=== PATIENT | female | born 1970 ===

== ENCOUNTER 2016-08-17 17:30 | Emergency (ER) | payer OTHER ==
[2016-08-17 17:31] VITALS: BMI 18.1
[2016-08-17 18:05] VITALS: RESP 18; TEMP 97.7; O2SAT 99
[2016-08-17 19:00] LABS: RBC URINE 1 /hpf (0-3); URINE BACTERIA OCC (<OCC); URINE BILIRUBIN NEGATIVE (NEGATIVE); URINE BLOOD NEGATIVE (NEGATIVE); URINE CALCIUM OXALATE CRYSTALS FEW /hpf (<OCC); URINE COLOR Yellow (YELLOW); URINE GLUCOSE (UA) NORMAL (Normal); URINE KETONE NEGATIVE (NEGATIVE); URINE LEUKOCYTE ESTERASE NEG Leu/uL (Negative); URINE PROTEIN NEGATIVE (NEGATIVE); URINE UROBILINOGEN NORMAL mg/dL (0.2-1.0); WBC URINE < 1 /hpf (0-5)
--- NOTE | 2016-08-17 20:34 | C.PDOC ---
Time Seen by Provider: 08/17/16 18:49 Chief Complaint (Nursing): Abdominal Pain History Per: Patient Onset/Duration Of Symptoms: Days (1) Current Symptoms Are (Timing): Still Present Context: Other ( is sick contact) Severity: Moderate Location Of Pain/Discomfort: Epigastric Radiation Of Pain To:: None Quality Of Discomfort: Unable To Describe, "Pain" Associated Symptoms: Nausea Exacerbating Factors: Food Alleviating Factors: None Last Bowel Movement: Today Recent travel outside of the [place] States: No Additional History Per: Prior Records Past Medical History Reviewed: Historical Data, Nursing Documentation, Vital Signs Vital Signs: Last Vital Signs Temp 97.7 F 08/17/16 17:58 Pulse 64 08/17/16 17:58 Resp 18 08/17/16 17:58 BP 117/85 08/17/16 17:58 Pulse Ox 99 08/17/16 17:58 - Medical History PMH: Asthma, Back Problems, Gall Bladder Disease (gallstone), Migraine Family History: States: Unknown Family Hx - Social History Hx Tobacco Use: No 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 Constitutional: Negative for: Fever, Weakness Cardiovascular: Negative for: Chest Pain Respiratory: Negative for: Shortness of Breath Gastrointestinal: Positive for: Nausea, Abdominal Pain. Negative for: Vomiting , Diarrhea, Constipation, Melena, Hematochezia, Hematemesis Genitourinary: Negative for: Dysuria Musculoskeletal: Negative for: Neck Pain, Back Pain Skin: Negative for: Rash Neurological: Negative for: Weakness, Numbness, Seizures, Altered Mental Status Physical Exam - Physical Exam Appears: Non-toxic, No Acute Distress Skin: Normal Color, Warm, Dry, No Rash Head: Atraumatic, Normacephalic Eye(s): bilateral: Normal Inspection, PERRL, EOMI Oral Mucosa: Moist Neck: Normal ROM, Supple Cardiovascular: Rhythm Regular Respiratory: Normal Breath Sounds, No Accessory Muscle Use Gastrointestinal/Abdominal: Soft, No Tenderness Back: No CVA Tenderness Extremity: Normal ROM Neurological/Psych: Oriented x3, Normal Motor, Normal Sensation ED Course And Treatment - Laboratory Results Urine POC: Negative O2 Sat by Pulse Oximetry: 99 Pulse Ox Interpretation: Normal Progress - Interventions Interventions:: Observation - Medications Administered Oral: Antiemetic, H-2 ventura - Data Reviewed Data Reviewed: Lab, Old records - Patient Status Patient status: Mostly improved - Continuity of Care Discussed patient case with:: Patient, Family-HIPPA compliant, ED Nurse - Patient Plan Patient Plan: Discharge, F/U with PCP, Continue present meds Disposition Counseled Patient/Family Regarding: Studies Performed, Diagnosis, Need For Followup, Rx Given - Disposition Referrals: [facility] [Outside] Disposition: HOME/ ROUTINE Disposition Time: 20:33 Condition: IMPROVED Additional Instructions: Drink plenty of fluids. Follow up with your doctor or in the clinic. Return to the ER if you develop fever, bleeding, not tolerating fluids, worsening of symptoms or if you have any other concerns. Prescriptions: Famotidine [Pepcid] 20 mg PO BID #30 tab Metoclopramide [Reglan] 1 tab PO TID PRN #15 tab PRN Reason: Nausea/Vomiting Instructions: Gastritis (ED) - Clinical Impression Clinical Impression: Abdominal pain, Nausea
[2016-08-17 20:41] VITALS: BP 121/82; PULSE 68
== END 2016-08-17 20:43 | disposition home or self-care (01) ==
LOC: C.ER 17:30
DX: R10.9 Unspecified abdominal pain (principal); R11.0 Nausea

== ENCOUNTER 2017-01-01 08:32 | Emergency (ER) | payer OTHER ==
[2017-01-01 08:32] VITALS: BMI 18.1
[2017-01-01] MEDS ORDERED: Albuterol-Ipratrop 3 mg / 0.5 (3 ml) UD ONE ×2 (08:59→09:26)
--- NOTE | 2017-01-01 09:06 | C.PDOC ---
History Of Present Illness 46 year old female, whose PMHx includes asthma, presents to the ED for evaluation of asthma exacerbation which began around 4 days ago. Patient denies fever, chills, chest pain, cough, vomiting, previous history of intubations or asthma-related hospitalizations at this time. Time Seen by Provider: 01/01/17 08:43 Chief Complaint (Nursing): Shortness Of Breath History Per: Patient History/Exam Limitations: no limitations Onset/Duration Of Symptoms: Days (4) Current Symptoms Are (Timing): Still Present Quality: denies: "Pain" Current Respiratory Medications: See Home Med List Associated Symptoms: denies: Fever, Chills, Chest Pain, Bloody Cough, Productive Cough Additional History Per: Patient Past Medical History Reviewed: Historical Data, Nursing Documentation, Vital Signs Vital Signs: Last Vital Signs Temp 98.9 F 01/01/17 10:31 Pulse 79 01/01/17 10:31 Resp 18 01/01/17 10:31 BP 123/73 01/01/17 10:31 Pulse Ox 100 01/01/17 11:03 - Medical History PMH: Asthma, Back Problems, Gall Bladder Disease (gallstone), Migraine Surgical History: No Surg Hx Family History: States: Unknown Family Hx - Social History Hx Tobacco Use: No 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 Negative for: Cough Gastrointestinal: Negative for: Vomiting Physical Exam - Physical Exam Appears: Non-toxic, No Acute Distress Skin: Normal Color, Warm, Dry Head: Atraumatic, Normacephalic Eye(s): bilateral: Normal Inspection Ear(s): Bilateral: Normal Nose: Normal Oral Mucosa: Moist Throat: Normal, No Erythema, No Exudate Neck: Supple Lymphatic: Normal Exam Chest: Symmetrical, No Deformity, No Tenderness Cardiovascular: Rhythm Regular, No Murmur Respiratory: No Rales, No Rhonchi, Wheezing (minimal, expiratory ), Other (no retructions) Extremity: Normal ROM, Capillary Refill (less than 2 seconds ) Neurological/Psych: Oriented x3, Normal Speech, Normal Cognition Gait: Steady ED Course And Treatment O2 Sat by Pulse Oximetry: 100 (on RA) Pulse Ox Interpretation: Normal Progress Note: Prednisone 60mg PO and four treatments of Duoneb INH administered. On reassessment, patient is resting comfortably and is showing no signs of respiratory distress. Patient reports her symptoms have resolved and states she would like to be discharged. Patient is advised to follow up with her PMD within 1-2 days for further evaluation and/or return to the ED if symptoms return or worsen. Disposition Counseled Patient/Family Regarding: Studies Performed, Diagnosis, Need For Followup, Rx Given - Disposition Referrals: [facility] [Outside] [facility] [Outside] Disposition: HOME/ ROUTINE Disposition Time: 10:24 Condition: STABLE Additional Instructions: FOLLOW UP WITH PMD OR CLINIC IN 1-2 DAYS FOR RE-EVALUATION. IF SYMPTOMS GET WORSE OR ANY NEW CONCERNING SYMPTOMS DEVELOP RETURN TO ED. 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 - Scribe Statement The provider has reviewed the documentation as recorded by the Scribe (Michelle Bright) All medical record entries made by the Scribe were at my direction and personally dictated by me. I have reviewed the chart and agree that the record accurately reflects my personal performance of the history, physical exam, medical decision making, and the department course for this patient. I have also personally directed, reviewed, and agree with the discharge instructions and disposition.
[2017-01-01] MEDS: Albuterol-Ipratrop 3 mg / 0.5 (3 ml) UD IH SCH ×3 (09:08→09:46)
[2017-01-01 09:18] VITALS: RESP 18
[2017-01-01 10:32] VITALS: BP 123/73; PULSE 79; TEMP 98.9
[2017-01-01 10:57] VITALS: O2SAT 100
== END 2017-01-01 10:31 | disposition home or self-care (01) ==
LOC: C.ER 08:32
DX: J45.909 Unspecified asthma, uncomplicated (principal)

== ENCOUNTER 2017-01-20 10:52 | Emergency (ER) | payer MEDICAID ==
[2017-01-20 10:52] VITALS: BMI 21.4
[2017-01-20 11:12] VITALS: TEMP 98.1
[2017-01-20] MEDS ORDERED: Naproxen 550 mg Tab PO STA (11:41)
[2017-01-20] MEDS ORDERED: Naproxen 550 mg Tab PO ONE (11:53)
[2017-01-20 12:47] LABS: URINE BILIRUBIN NEGATIVE (NEGATIVE); URINE BLOOD 2+ (NEGATIVE); URINE COLOR Yellow (YELLOW); URINE GLUCOSE (UA) NORMAL (Normal); URINE KETONE NEGATIVE (NEGATIVE); URINE LEUKOCYTE ESTERASE NEG Leu/uL (Negative); URINE PROTEIN NEGATIVE (NEGATIVE); URINE UROBILINOGEN NORMAL mg/dL (0.2-1.0)
[2017-01-20 12:58] LABS: RBC URINE 3 /hpf (0-3)
[2017-01-20 13:14] VITALS: BP 96/62; PULSE 63; RESP 16; O2SAT 99
--- NOTE | 2017-01-20 13:34 | C.PDOC ---
History Of Present Illness 46 year old female, whose PMHx includes migraines, presents to the ED for evaluation of headache and generalized body aches which began at around 0300 today. Patient states symptoms are similar to her typical migraines, but she does not have any Excedrin right now. Patient also complains of dysuria and increased urinary frequency for 1 month. Patient denies fever, chills, nausea, vomiting, abdominal pain, flank pain, vaginal bleeding/discharge. Time Seen by Provider: 01/20/17 11:00 Chief Complaint (Nursing): Headache History Per: Patient History/Exam Limitations: no limitations Onset/Duration Of Symptoms: Hrs Current Symptoms Are (Timing): Still Present Quality: Aching Preceeding Symptoms: Known Migraine Symptoms Additional History Per: Patient Past Medical History Reviewed: Historical Data, Nursing Documentation, Vital Signs Vital Signs: Last Vital Signs Temp 98.1 F 01/20/17 11:00 Pulse 63 01/20/17 13:13 Resp 16 01/20/17 13:13 BP 96/62 L 01/20/17 13:13 Pulse Ox 99 01/20/17 16:57 - Medical History PMH: Asthma, Back Problems, Depression, Gall Bladder Disease (gallstone), Migraine Surgical History: No Surg Hx Family History: States: Unknown Family Hx - Social History Hx Tobacco Use: No Hx Alcohol Use: Yes Hx Substance Use: Yes - Immunization History Hx Tetanus Toxoid Vaccination: No Hx Influenza Vaccination: No Hx Pneumococcal Vaccination: No Review Of Systems Constitutional: Negative for: Fever, Chills Gastrointestinal: Negative for: Nausea, Vomiting, Abdominal Pain Genitourinary: Positive for: Dysuria, Frequency. Negative for: Vaginal Discharge, Vaginal Bleeding Musculoskeletal: Negative for: Other (flank pain ) Neurological: Positive for: Headache Physical Exam - Physical Exam Appears: Non-toxic, No Acute Distress, Other (comfortable ) Skin: Normal Color, Warm, Dry Head: Atraumatic, Normacephalic Eye(s): bilateral: Normal Inspection, PERRL, EOMI Ear(s): Bilateral: Normal Oral Mucosa: Moist Neck: Supple Chest: Symmetrical, No Deformity, No Tenderness Cardiovascular: Rhythm Regular, No Murmur Respiratory: Normal Breath Sounds, No Rales, No Rhonchi, No Wheezing Gastrointestinal/Abdominal: Soft, No Tenderness, No Guarding, No Rebound Back: No CVA Tenderness Extremity: Normal ROM, Capillary Refill (less than 2 seconds ) Neurological/Psych: Oriented x3, Normal Speech, Normal Cognition, Other ( bizarre affect ) Gait: Steady ED Course And Treatment O2 Sat by Pulse Oximetry: 99 (on RA) Pulse Ox Interpretation: Normal Progress Note: Prior records reviewed: Patient was evaluated in [facility] yesterday for Tylenol overdose and depression. Urine culture obtained and sent to lab for further evaluation. Urinalysis ordered and reviewed. Influenza A/B swab ordered, and resulted negative. Naproxen PO administered. Patient was PO challenged and able to tolerate intake. On reassessment, patient is resting comfortably, showing no signs of distress and reports an improvement in her symptoms. Patient is stable for discharge and is advised to follow up with her PMD/clinic within 1-2 days for further evaluation. Reassessment Condition: Improved Disposition Counseled Patient/Family Regarding: Studies Performed, Diagnosis, Need For Followup, Rx Given - Disposition Referrals: [facility] [Outside] Disposition: HOME/ ROUTINE Disposition Time: 13:50 Condition: STABLE Additional Instructions: FOLLOW UP [facility] WITHIN 1 WEEK USE TYLENOL NEEDED FOR PAIN RETURN TO ER IF SYMPTOMS WORSEN Prescriptions: Acetaminophen [Tylenol 325mg tab] 650 mg PO Q6 PRN #30 tab PRN Reason: pain/fever Simethicone [Mylicon Chew Tab] 80 mg PO Q6 #30 ctb Instructions: Viral Syndrome (ED) Forms: [employer] (Afghan) Print Language: GEORGIAN - POA Present On Arrival: None - Clinical Impression Clinical Impression: Viral syndrome - Scribe Statement The provider has reviewed the documentation as recorded by the Scribe (Michelle Bright) Provider Attestation: All medical record entries made by the Scribe were at my direction and personally dictated by me. I have reviewed the chart and agree that the record accurately reflects my personal performance of the history, physical exam, medical decision making, and the department course for this patient. I have also personally directed, reviewed, and agree with the discharge instructions and disposition.
== END 2017-01-20 14:03 | disposition home or self-care (01) ==
LOC: C.ER 10:52
DX: B34.9 Viral infection, unspecified (principal)

== ENCOUNTER 2017-02-23 16:17 | Emergency (ER) | payer MEDICAID ==
[2017-02-23 16:51] VITALS: BMI 19.9
[2017-02-23 16:52] VITALS: RESP 20; TEMP 98.9; O2SAT 99
--- NOTE | 2017-02-23 18:50 | C.PDOC ---
History Of Present Illness 46 y/o female presents to the ER complaining of runny nose, productive cough with clear sputum, and congestion which has been present for 1 week. Patient denies having fever,chest pain, shortness of breath, and sore throat. Patient does not have any other medical complaints. Time Seen by Provider: 02/23/17 17:12 Chief Complaint (Nursing): Cough, Cold, Congestion History Per: Patient History/Exam Limitations: no limitations Onset/Duration Of Symptoms: Days Current Symptoms Are (Timing): Still Present Severity: Moderate Past Medical History Reviewed: Historical Data, Nursing Documentation, Vital Signs Vital Signs: Last Vital Signs Temp 98.9 F 02/23/17 16:51 Pulse 74 02/23/17 16:51 Resp 20 02/23/17 16:51 BP 105/71 02/23/17 16:51 Pulse Ox 99 02/23/17 19:15 - Medical History PMH: Asthma, Back Problems, Depression, Gall Bladder Disease (gallstone), Migraine Denies: Chronic Kidney Disease Surgical History: No Surg Hx Family History: States: No Known Family Hx - Social History Hx Tobacco Use: No Hx Alcohol Use: Yes Hx Substance Use: Yes - Immunization History Hx Tetanus Toxoid Vaccination: No Hx Influenza Vaccination: No Hx Pneumococcal Vaccination: No Review Of Systems Except As Marked, All Systems Reviewed And Found Negative. Constitutional: Negative for: Fever, Chills ENT: Positive for: Nose Discharge, Nose Congestion. Negative for: Throat Pain Cardiovascular: Negative for: Chest Pain Respiratory: Positive for: Cough (productive cough). Negative for: Shortness of Breath Physical Exam - Physical Exam Appears: Non-toxic, No Acute Distress, Other (comfortable) Skin: Normal Color, Warm Head: Atraumatic, Normacephalic Eye(s): bilateral: Normal Inspection, PERRL Nose: Tenderness (mild tenderness to palpation over the frontal sinus), Other ( rhinorrhea) Oral Mucosa: Moist Throat: Normal, No Erythema, No Exudate Cardiovascular: Rhythm Regular Respiratory: Normal Breath Sounds, No Accessory Muscle Use, No Rales, No Rhonchi , No Wheezing ED Course And Treatment O2 Sat by Pulse Oximetry: 99 (RA) Pulse Ox Interpretation: Normal Progress Note: CXR ordered. Pregancy test ordered upon request of patient. Patient given Sudafed. Disposition Counseled Patient/Family Regarding: Studies Performed, Diagnosis, Need For Followup, Rx Given - Disposition Referrals: [facility] [Outside] Disposition: HOME/ ROUTINE Disposition Time: 18:50 Condition: STABLE Additional Instructions: FOLLOW UP WITH YOUR DOCTOR/CLINIC IN 1-2 DAYS USE MEDICATIONS DIRECTED RETURN TO ER IF SYMPTOMS WORSEN Prescriptions: Benzonatate [Tessalon Perles] 100 mg PO BID PRN #15 sgl PRN Reason: Cough Pseudoephedrine [Sudafed] 60 mg PO Q6 PRN #12 tab PRN Reason: Nasal Congestion Instructions: Upper Respiratory Infection (ED) Forms: [employer] (Macedonian) Print Language: THAI - Clinical Impression Clinical Impression: Viral URI - Scribe Statement The provider has reviewed the documentation as recorded by the Bridger Harkins Provider Attestation: All medical record entries made by the Bridger were at my direction and personally dictated by me. I have reviewed the chart and agree that the record accurately reflects my personal performance of the history, physical exam, medical decision making, and the department course for this patient. I have also personally directed, reviewed, and agree with the discharge instructions and disposition.
[2017-02-23 19:46] VITALS: BP 102/64; PULSE 68
--- NOTE | 2017-02-24 08:34 | RAD ---
HISTORY: cough COMPARISON: Chest x-ray 03/25/2016 TECHNIQUE: Chest PA and lateral FINDINGS: LUNGS: No focal consolidation is seen. PLEURA: No pleural effusion is identified. CARDIOVASCULAR: Heart size is within normal limits. OSSEOUS STRUCTURES: Visualized osseous structures are unremarkable. VISUALIZED UPPER ABDOMEN: Unremarkable. OTHER FINDINGS: None. IMPRESSION: No acute cardiopulmonary process seen.
== END 2017-02-23 19:10 | disposition home or self-care (01) ==
LOC: C.ER 16:17
DX: J06.9 Acute upper respiratory infection, unspecified (principal)

== ENCOUNTER 2017-04-18 16:05 | Emergency (ER) | payer MEDICAID ==
[2017-04-18 16:05] VITALS: BMI 19.9
[2017-04-18 16:17] VITALS: O2SAT 100
[2017-04-18] MEDS ORDERED: Albuterol 0.083% Inhal Sol (2.5 mg/3 mL) UD INH STA (19:26)
--- NOTE | 2017-04-18 19:27 | C.PDOC ---
History Of Present Illness 46 year old female with a PMHx of asthma presents complaining that her "asthma is acting up" for the past 1 day. Patient is complaining of body aches, cough, and congestion, requiring that she use her inhaler with transient relief. No chest pain, fever, or chills. Patient had similar symptoms last month which improved but returned yesterday. PMD: none Time Seen by Provider: 04/18/17 19:07 Chief Complaint (Nursing): Shortness Of Breath History Per: Patient History/Exam Limitations: no limitations Onset/Duration Of Symptoms: Days (x1) Current Symptoms Are (Timing): Still Present Past Medical History Reviewed: Historical Data, Nursing Documentation, Vital Signs Vital Signs: Last Vital Signs Temp 100 F H 04/18/17 21:05 Pulse 80 04/18/17 21:05 Resp 20 04/18/17 21:05 BP 98/70 L 04/18/17 21:05 Pulse Ox 100 04/18/17 21:38 - Medical History PMH: Asthma, Back Problems, Depression, Gall Bladder Disease (gallstone), Migraine Denies: Diabetes, Hepatitis, HIV, HTN, Chronic Kidney Disease, Seizures, Sexually Transmitted Disease Family History: States: Unknown Family Hx - Social History Hx Tobacco Use: No Hx Alcohol Use: Yes Hx Substance Use: Yes - Immunization History Hx Tetanus Toxoid Vaccination: No Hx Influenza Vaccination: No Hx Pneumococcal Vaccination: No Review Of Systems Except As Marked, All Systems Reviewed And Found Negative. Constitutional: Positive for: Other (body aches). Negative for: Fever, Chills ENT: Positive for: Nose Discharge, Nose Congestion Cardiovascular: Negative for: Chest Pain Respiratory: Positive for: Cough Physical Exam - Physical Exam Appears: Well, Non-toxic, No Acute Distress Skin: Normal Color, Warm, Dry Head: Atraumatic, Normacephalic Eye(s): bilateral: Normal Inspection, EOMI Nose: Normal Oral Mucosa: Moist Throat: Normal, Erythema, No Exudate, No Drooling Neck: Normal, Normal ROM, Supple Lymphatic: Normal Exam Chest: Symmetrical Cardiovascular: Rhythm Regular Respiratory: Normal Breath Sounds, No Rales, No Rhonchi, No Wheezing, Other ( speaking full sentences) Neurological/Psych: Oriented x3, Normal Speech, No Other (focal deficits) ED Course And Treatment O2 Sat by Pulse Oximetry: 100 (RA) Pulse Ox Interpretation: Normal Progress Note: Patient given nebulizer treatment and 400 mg Motrin PO. On reevaluation, pt reports feeling better. Patient is resting comfortably with no wheezing, chest pain, or retractions. PT feels comfortable with discharge and is instructed to follow up with PMD in 1-2 days. Reevaluation Time: 20:20 Reassessment Condition: Improved Disposition Counseled Patient/Family Regarding: Diagnosis, Need For Followup, Rx Given - Disposition Disposition: HOME/ ROUTINE Disposition Time: 20:29 Condition: STABLE Additional Instructions: Follow up with your primary medical doctor or clinic in 2-5 days for further evaluation. Take medications as prescribed. Return to the emergency department at any time if symptoms persist or worsen. 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 - Scribe Statement The provider has reviewed the documentation as recorded by the Scribe (Kassie Torres) All medical record entries made by the Scribe were at my direction and personally dictated by me. I have reviewed the chart and agree that the record accurately reflects my personal performance of the history, physical exam, medical decision making, and the department course for this patient. I have also personally directed, reviewed, and agree with the discharge instructions and disposition.
[2017-04-18] MEDS ORDERED: Albuterol 0.083% Inhal Sol (2.5 mg/3 mL) UD ONE (19:46)
[2017-04-18 21:06] VITALS: BP 98/70; PULSE 80; RESP 20; TEMP 100
== END 2017-04-18 21:06 | disposition home or self-care (01) ==
LOC: C.ER 16:05
DX: J45.901 Unspecified asthma with (acute) exacerbation (principal); J11.1 Influenza due to unidentified influenza virus with other respiratory manifestations

== ENCOUNTER 2017-05-09 15:19 | Emergency (ER) | payer MEDICAID ==
[2017-05-09 15:19] VITALS: BMI 19.9
[2017-05-09 15:28] VITALS: BP 107/66; PULSE 74; RESP 20; TEMP 97.7; O2SAT 100
--- NOTE | 2017-05-09 16:10 | C.PDOC ---
History Of Present Illness 46 year old female presents to the ER with a complaint of a persistent cough since April 18 2017. Patient was seen in the ER 1 month ago for the same symptoms and diagnosed with the flu, she was started on prednisone and tamiflu. She reports improvement of symptoms but still has a persistent cough. Denies fever, GOULD, or chest pain. Time Seen by Provider: 05/09/17 15:34 Chief Complaint (Nursing): Cough, Cold, Congestion History Per: Patient History/Exam Limitations: no limitations Onset/Duration Of Symptoms: Days Current Symptoms Are (Timing): Still Present Location Of Pain: None Sick Contacts (Context): None Associated Symptoms: Cough. denies: Fever, Other (GOULD, Chest pain) Ear Symptoms: Bilateral: None Recent travel outside of the [place]: No Past Medical History Reviewed: Historical Data, Nursing Documentation, Vital Signs Vital Signs: Last Vital Signs Temp 97.7 F 05/09/17 15:24 Pulse 74 05/09/17 15:24 Resp 20 05/09/17 15:24 BP 107/66 05/09/17 15:24 Pulse Ox 100 05/09/17 16:11 - Medical History PMH: Asthma, Back Problems, Depression, Gall Bladder Disease (gallstone), Migraine Family History: States: Unknown Family Hx - Social History Hx Tobacco Use: No Hx Alcohol Use: Yes Hx Substance Use: Yes - Immunization History Hx Tetanus Toxoid Vaccination: No Hx Influenza Vaccination: No Hx Pneumococcal Vaccination: No Review Of Systems Except As Marked, All Systems Reviewed And Found Negative. Constitutional: Negative for: Fever Cardiovascular: Negative for: Chest Pain Respiratory: Positive for: Cough. Negative for: SOB with Excertion Physical Exam - Physical Exam Appears: Non-toxic, No Acute Distress Skin: Normal Color, Warm, Dry Head: Atraumatic, Normacephalic Eye(s): bilateral: Normal Inspection Ear(s): Bilateral: Normal Nose: Normal Oral Mucosa: Moist Throat: Normal, No Erythema, No Exudate Neck: Normal, Supple Chest: Symmetrical, No Tenderness Cardiovascular: Rhythm Regular Respiratory: Normal Breath Sounds, No Accessory Muscle Use Neurological/Psych: Oriented x3, Normal Speech ED Course And Treatment O2 Sat by Pulse Oximetry: 100 Pulse Ox Interpretation: Normal - Radiology CXR: Interpreted by Me, Viewed By Me CXR Interpretation: Yes: No Acute Disease Medical Decision Making Medical Decision Making: Plan: * CXR Disposition Counseled Patient/Family Regarding: Studies Performed, Diagnosis, Need For Followup, Rx Given - Disposition Referrals: YOUR,PMD [Other] Disposition: HOME/ ROUTINE Disposition Time: 16:11 Condition: GOOD Prescriptions: Azithromycin 250 mg PO DAILY #6 tab Benzonatate [Tessalon Perles] 200 mg PO TID PRN #15 sgl PRN Reason: Cough Instructions: Cough, Adult (DC) Forms: [employer] (Palauan) - Clinical Impression Clinical Impression: Cough - Scribe Statement The provider has reviewed the documentation as recorded by the Scribe Gustavo Howell All medical record entries made by the Matiibjay were at my direction and personally dictated by me. I have reviewed the chart and agree that the record accurately reflects my personal performance of the history, physical exam, medical decision making, and the department course for this patient. I have also personally directed, reviewed, and agree with the discharge instructions and disposition.
--- NOTE | 2017-05-09 16:19 | RAD ---
HISTORY: COMPARISON: 02/23/2017. TECHNIQUE: Chest PA and lateral FINDINGS: LINES AND TUBES: None. LUNG AND PLEURA: The lungs are well inflated and clear. No pleural effusion or pneumothorax. HEART AND MEDIASTINUM: The heart is not enlarged. The hilar and mediastinal contours are within normal limits. SKELETAL STRUCTURES: The bony structures are within normal limits for the patient's age. VISUALIZED UPPER ABDOMEN: Normal. OTHER FINDINGS: None. IMPRESSION: No active pulmonary disease.
== END 2017-05-09 16:34 | disposition home or self-care (01) ==
LOC: C.ER 15:19
DX: R05 Cough (principal)

== ENCOUNTER 2017-11-20 19:22 | Emergency (ER) | payer MEDICAID, OTHER ==
[2017-11-20 19:22] VITALS: BMI 19.9
[2017-11-20 19:44] VITALS: BP 125/82; PULSE 73; RESP 18; TEMP 98.4; O2SAT 97
--- NOTE | 2017-11-20 20:13 | C.PDOC ---
History Of Present Illness 47 year old female presents to the ED c/o sore throat and cough with sputum. Patient denies fever, chills, nausea, vomit, diarrhea, recent travel, sick contacts. Chief Complaint (Nursing): Substance Abuse History Per: Patient, EMS History/Exam Limitations: intoxication Onset/Duration Of Symptoms: Days Current Symptoms Are (Timing): Still Present Suicide/Self Injury Attempted (Context): None Modifying Factor(s): Alcohol Associated Symptoms: denies: Depression, Suicidal Thoughts, Suicidal Plan Involuntary Hold By: None Recent travel outside of the [place]: No Additional History Per: Patient, EMS Past Medical History Reviewed: Historical Data, Nursing Documentation, Vital Signs Vital Signs: Last Vital Signs Temp 98.4 F 11/20/17 19:39 Pulse 73 11/20/17 19:39 Resp 18 11/20/17 19:39 BP 125/82 11/20/17 19:39 Pulse Ox 97 11/20/17 19:39 - Medical History PMH: Anxiety, Asthma, Back Problems, Depression, Gall Bladder Disease (gallstone) Denies: Diabetes, Hepatitis, HIV, HTN, Migraine, Chronic Kidney Disease, Seizures, Sexually Transmitted Disease Surgical History: No Surg Hx - [facility] Procedures GROUP PSYCHOTHERAPY (08/06/17) INDIVIDUAL PSYCHOTHERAPY, COGNITIVE-BEHAVIORAL (08/06/17) Family History: States: Unknown Family Hx - Social History Hx Tobacco Use: No Hx Alcohol Use: Yes Hx Substance Use: Yes - Immunization History Hx Tetanus Toxoid Vaccination: No Hx Influenza Vaccination: No Hx Pneumococcal Vaccination: No Review Of Systems Constitutional: Negative for: Fever, Chills ENT: Positive for: Throat Pain Cardiovascular: Negative for: Chest Pain Respiratory: Positive for: Cough, Sputum. Negative for: Shortness of Breath Gastrointestinal: Negative for: Nausea, Vomiting Genitourinary: Negative for: Dysuria Neurological: Negative for: Weakness, Numbness, Headache Physical Exam - Physical Exam Appears: Non-toxic, No Acute Distress Skin: Normal Color, Warm, Dry Head: Atraumatic, Normacephalic Eye(s): bilateral: Normal Inspection Ear(s): Bilateral: Normal Oral Mucosa: Moist Throat: Normal, No Erythema, No Exudate Neck: Normal ROM, Supple Chest: Symmetrical Cardiovascular: Rhythm Regular Respiratory: No Rales, Rhonchi (occasional right lower lung), No Wheezing Gastrointestinal/Abdominal: Soft, No Tenderness, No Guarding, No Rebound Extremity: Normal ROM, No Tenderness, No Swelling Neurological/Psych: Oriented x3, Normal Speech Gait: Steady ED Course And Treatment O2 Sat by Pulse Oximetry: 97 (ON RA) Pulse Ox Interpretation: Normal - Radiology CXR: Interpreted by Me, Viewed By Me CXR Interpretation: Yes: No Acute Disease. No: Infiltrates (normal chest film) Medical Decision Making Medical Decision Making: Plan: * EKG * CXR Disposition Counseled Patient/Family Regarding: Diagnosis - Disposition Referrals: [facility] [Outside] Disposition: HOME/ ROUTINE Disposition Time: 20:15 Condition: STABLE Prescriptions: Amoxicillin [Amoxil 500 mg Cap] 500 mg PO TID #20 cap Instructions: Sore Throat in Adults Forms: [facility] ([place] Islander) - POA Present On Arrival: None - Clinical Impression Clinical Impression: Pharyngitis, Upper respiratory infection, Alcohol abuse - Scribe Statement The provider has reviewed the documentation as recorded by the Scribe Rylan Quevedo All medical record entries made by the Scribe were at my direction and personally dictated by me. I have reviewed the chart and agree that the record accurately reflects my personal performance of the history, physical exam, medical decision making, and the department course for this patient. I have also personally directed, reviewed, and agree with the discharge instructions and disposition.
--- NOTE | 2017-11-21 09:45 | RAD ---
HISTORY: Cough, ETOH COMPARISON: 05/09/2017. TECHNIQUE: Chest PA and lateral FINDINGS: LINES AND TUBES: None. LUNG AND PLEURA: The lungs are well inflated and clear. No pleural effusion or pneumothorax. HEART AND MEDIASTINUM: The heart is not enlarged. The hilar and mediastinal contours are within normal limits. SKELETAL STRUCTURES: The bony structures are within normal limits for the patient's age. VISUALIZED UPPER ABDOMEN: Normal. OTHER FINDINGS: None. IMPRESSION: No active pulmonary disease.
== END 2017-11-20 20:48 | disposition home or self-care (01) ==
LOC: C.ER 19:22
DX: J02.9 Acute pharyngitis, unspecified (principal); F10.10 Alcohol abuse, uncomplicated; J06.9 Acute upper respiratory infection, unspecified

== ENCOUNTER 2017-11-20 22:59 | Emergency (ER) | payer SELFPAY ==
[2017-11-20 22:59] VITALS: BMI 19.9
[2017-11-20 23:07] VITALS: BP 121/76; PULSE 77; RESP 19; TEMP 98.2; O2SAT 99
--- NOTE | 2017-11-20 23:36 | C.PDOC ---
Time Seen by Provider: 11/20/17 23:33 Chief Complaint (Nursing): Medical Clearance Past Medical History Vital Signs: Last Vital Signs Temp 98.2 F 11/20/17 23:00 Pulse 77 11/20/17 23:00 Resp 19 11/20/17 23:00 BP 121/76 11/20/17 23:00 Pulse Ox 99 11/20/17 23:00 - Medical History PMH: Anxiety, Asthma, Back Problems, Depression, Gall Bladder Disease (gallstone) Denies: Diabetes, Hepatitis, HIV, HTN, Migraine, Chronic Kidney Disease, Seizures, Sexually Transmitted Disease - [facility] Procedures GROUP PSYCHOTHERAPY (08/06/17) INDIVIDUAL PSYCHOTHERAPY, COGNITIVE-BEHAVIORAL (08/06/17) Family History: States: Unknown Family Hx - Social History Hx Tobacco Use: No Hx Alcohol Use: Yes Hx Substance Use: Yes - Immunization History Hx Tetanus Toxoid Vaccination: No Hx Influenza Vaccination: No Hx Pneumococcal Vaccination: No ED Course And Treatment O2 Sat by Pulse Oximetry: 99 Medical Decision Making Medical Decision Making: Malingering homeless, boyfriend upstairs in [facility] Wants to sleep in waiting room Seen earlier and escorted out by Security for alcohol abuse and possion, as well as posession of a menacingly large combat folding knife. Did not c/o SI/HI in prior visit Now claims SI, but no plan (during triage) on eval declines SI Wants to sleep in ED overnight, unable to accomodate Disposition Doctor Will See Patient In The: Office Counseled Patient/Family Regarding: Studies Performed, Diagnosis - Disposition Disposition: HOME/ ROUTINE Disposition Time: 23:36 Condition: GOOD - Clinical Impression Clinical Impression: Alcohol abuse, Malingering
== END 2017-11-20 23:45 | disposition home or self-care (01) ==
LOC: C.ER 22:59
DX: F10.10 Alcohol abuse, uncomplicated (principal); Z76.5 Malingerer [conscious simulation]

== ENCOUNTER 2017-11-21 14:00 | Emergency (ER) | payer MEDICAID ==
[2017-11-21 14:36] VITALS: BP 106/70; PULSE 64; RESP 18; TEMP 98.6; O2SAT 98
--- NOTE | 2017-11-21 15:12 | C.PDOC ---
History Of Present Illness 47yo female, comes to ER reporting vaginal discharged for several months with foul smelling discharge present for a couple weeks. Patient denies any rash or itching; she also denies any prior treatment for her symptoms. Patient states she is sexually active with a single partner and does not use protection. Patient reports concern for possible STD. No other complaints. Time Seen by Provider: 11/21/17 14:40 Chief Complaint (Nursing): Female Genitourinary History Per: Patient History/Exam Limitations: no limitations Onset/Duration Of Symptoms: Persistent Current Symptoms Are (Timing): Still Present Associated Symptoms: denies: Fever, Urinary Symptoms Abnormal Vaginal Bleeding: No Past Medical History Reviewed: Historical Data, Nursing Documentation, Vital Signs Vital Signs: Last Vital Signs Temp 98.6 F 11/21/17 14:36 Pulse 64 11/21/17 14:36 Resp 18 11/21/17 14:36 BP 106/70 11/21/17 14:36 Pulse Ox 98 11/21/17 14:36 - Medical History PMH: Anxiety, Asthma, Back Problems, Depression, Gall Bladder Disease (gallstone) Denies: Diabetes, Hepatitis, HIV, HTN, Migraine, Chronic Kidney Disease, Seizures, Sexually Transmitted Disease Surgical History: No Surg Hx - [facility] Procedures GROUP PSYCHOTHERAPY (08/06/17) INDIVIDUAL PSYCHOTHERAPY, COGNITIVE-BEHAVIORAL (08/06/17) Family History: States: No Known Family Hx - Social History Hx Tobacco Use: No Hx Alcohol Use: Yes Hx Substance Use: No - Immunization History Hx Tetanus Toxoid Vaccination: No Hx Influenza Vaccination: No Hx Pneumococcal Vaccination: No Review Of Systems Constitutional: Negative for: Fever, Chills Genitourinary: Positive for: Vaginal Discharge (discharge x months; foul smelling x weeks). Negative for: Dysuria, Frequency, Hematuria, Vaginal Bleeding Physical Exam - Physical Exam Appears: Non-toxic, No Acute Distress Skin: Normal Color Head: Normacephalic Eye(s): bilateral: Normal Inspection Neck: Supple Chest: Symmetrical Cardiovascular: Rhythm Regular Respiratory: Normal Breath Sounds Pelvic: Vaginal Discharge (watery discharge noted), Other (no lesions or erythema noted.) Neurological/Psych: Oriented x3 ED Course And Treatment O2 Sat by Pulse Oximetry: 98 Medical Decision Making Medical Decision Making: Prior records reviewed, patient with multiple recent ER visits and no mention of such symptoms in prior visits. Patient given Zithromax 1000mg PO and Rocephin 250mg IM. Patient is stable for discharge home; given prescription for Flagyl. Patient given referral for STD clinic for further STD testing and evaluation. Disposition Counseled Patient/Family Regarding: Diagnosis, Need For Followup, Rx Given - Disposition Referrals: [facility] [Outside] [facility] [Outside] ,[facility] [Other] Disposition: HOME/ ROUTINE Disposition Time: 15:10 Condition: GOOD Prescriptions: Metronidazole [Flagyl] 500 mg PO BID #14 tab Instructions: Bacterial Vaginosis (DC), Sexually-Transmitted Diseases (DC) Forms: [employer] (Ivorian) - Clinical Impression Clinical Impression: Bacterial vaginosis, Concern about STD in female without diagnosis - Scribe Statement The provider has reviewed the documentation as recorded by the Bridger Lock Provider Attestation: All medical record entries made by the Bridger were at my direction and personally dictated by me. I have reviewed the chart and agree that the record accurately reflects my personal performance of the history, physical exam, medical decision making, and the department course for this patient. I have also personally directed, reviewed, and agree with the discharge instructions and disposition.
[2017-11-21] MEDS ORDERED: cefTRIAXone (Rocephin) 250 mg Inj IM STA (15:13)
== END 2017-11-21 16:48 | disposition home or self-care (01) ==
LOC: C.ER 14:00
DX: N76.0 Acute vaginitis (principal)
CPT/HCPCS: 96372; 99283; J0696

== ENCOUNTER 2017-11-26 18:57 | Emergency (ER) | payer MEDICAID ==
[2017-11-26 19:20] VITALS: BP 134/74; PULSE 56; RESP 18; TEMP 97.5; O2SAT 99
--- NOTE | 2017-11-26 20:22 | C.PDOC ---
History Of Present Illness 47 year old female, a well known local homeless alcoholic, presents to ED after drinking alcohol and claims she had vomited in the ER. Patient is easily arousable and coherent. Patient was here a few nights ago and several other visits for alcohol abuse. Distant history of tylenol abuse but denies use today. Denies any physical injuries. Time Seen by Provider: 11/26/17 19:39 Chief Complaint (Nursing): GI Problem History Per: Patient History/Exam Limitations: no limitations Onset/Duration Of Symptoms: Days Current Symptoms Are (Timing): Still Present Past Medical History Reviewed: Historical Data, Nursing Documentation, Vital Signs Vital Signs: Last Vital Signs Temp 97.5 F L 11/26/17 19:14 Pulse 56 L 11/26/17 19:14 Resp 18 11/26/17 19:14 BP 134/74 11/26/17 19:14 Pulse Ox 99 11/26/17 19:14 - Medical History PMH: Anxiety, Asthma, Back Problems, Depression, Gall Bladder Disease (gallstone), Migraine Denies: Diabetes, Hepatitis, HIV, HTN, Chronic Kidney Disease, Seizures, Sexually Transmitted Disease - [facility] Procedures GROUP PSYCHOTHERAPY (08/06/17) INDIVIDUAL PSYCHOTHERAPY, COGNITIVE-BEHAVIORAL (08/06/17) Family History: States: No Known Family Hx - Social History Hx Tobacco Use: No Hx Alcohol Use: Yes Hx Substance Use: No - Immunization History Hx Tetanus Toxoid Vaccination: No Hx Influenza Vaccination: No Hx Pneumococcal Vaccination: No Review Of Systems Except As Marked, All Systems Reviewed And Found Negative. Constitutional: Positive for: Other (Alcohol on breath). Negative for: Fever, Chills Gastrointestinal: Positive for: Vomiting. Negative for: Nausea, Diarrhea Neurological: Negative for: Weakness, Numbness Physical Exam - Physical Exam Appears: Non-toxic, No Acute Distress, Other (Disheveled) Skin: Warm, Dry Head: Atraumatic, Normacephalic Eye(s): bilateral: Normal Inspection Oral Mucosa: Moist Neck: Supple Chest: Symmetrical Cardiovascular: Rhythm Regular Respiratory: Normal Breath Sounds Neurological/Psych: Oriented x3, Normal Speech Gait: Steady ED Course And Treatment O2 Sat by Pulse Oximetry: 99 (RA) Pulse Ox Interpretation: Normal Medical Decision Making Medical Decision Making: Impression: Alcohol Abuse Plan: --Zofran persistent alcohol abuse denies OD or using TYlenol today (? h/o tylenol OD) persistent homeless with her boyfriend with whom she can stay tonight. no acute medical issues. no vomiting in ED non h/o bilious nor bloody vomiting today nor recently. easily arousable and coherent Disposition Doctor Will See Patient In The: Office Counseled Patient/Family Regarding: Studies Performed, Diagnosis - Disposition Referrals: Alcoholics Anonymous [Outside] [facility] [Outside] [facility] [place] [Outside] [facility] [Outside] [facility] [Outside] Disposition: HOME/ ROUTINE Disposition Time: 20:22 Condition: GOOD Additional Instructions: avoid alcohol abuse- provokes alcoholic gastritis and nausea/vomiting seek outpatient follow-up for your psychiatric and alcohol abuse issues. Seek nightly senior living placement. Instructions: Nausea and Vomiting, Adult (DC), Alcohol Abuse and Alcoholism (DC) Forms: [employer] (Panamanian) - Clinical Impression Clinical Impression: Malingering, Alcohol abuse
== END 2017-11-26 20:42 | disposition home or self-care (01) ==
LOC: C.ER 18:57
DX: Z76.5 Malingerer [conscious simulation] (principal); F10.10 Alcohol abuse, uncomplicated; Y90.9 Presence of alcohol in blood, level not specified; Z59.0 Homelessness

== ENCOUNTER 2018-04-05 21:02 | Emergency (ER) | payer MEDICAID, OTHER ==
[2018-04-05 21:13] VITALS: BP 125/80; PULSE 83; TEMP 97.6; O2SAT 100
[2018-04-05] MEDS ORDERED: Amoxicillin-Clav 875-125 mg Tab PO STA (21:40)
[2018-04-05] MEDS ORDERED: Amoxicillin-Clav 875-125 mg Tab PO ONE (21:49)
--- NOTE | 2018-04-05 22:01 | C.PDOC ---
History Of Present Illness 47 year old female presents to the ER with cough and runny nose persistent for the past 30 days. Patient has not seen anyone for the symptoms. She reports now having left ear pain. Denies vomiting, diarrhea, rash, or recent travel. Time Seen by Provider: 04/05/18 21:20 Chief Complaint (Nursing): Cough, Cold, Congestion History Per: Patient History/Exam Limitations: no limitations Onset/Duration Of Symptoms: Days Current Symptoms Are (Timing): Still Present Recent travel outside of the [place]: No Past Medical History Reviewed: Historical Data, Nursing Documentation, Vital Signs Vital Signs: Last Vital Signs Temp 97.6 F 04/05/18 21:10 Pulse 83 04/05/18 21:10 Resp 22 04/05/18 21:10 BP 125/80 04/05/18 21:10 Pulse Ox 100 04/05/18 21:10 - Medical History PMH: Anxiety, Asthma, Back Problems, Depression, Gall Bladder Disease (gallstone), Migraine, Seizures Denies: Diabetes, Hepatitis, HIV, HTN, Chronic Kidney Disease, Sexually Transmitted Disease - [facility] Procedures GROUP PSYCHOTHERAPY (08/06/17) INDIVIDUAL PSYCHOTHERAPY, COGNITIVE-BEHAVIORAL (08/06/17) Family History: States: Unknown Family Hx - Social History Hx Tobacco Use: No Hx Alcohol Use: Yes Hx Substance Use: Yes - Immunization History Hx Tetanus Toxoid Vaccination: No Hx Influenza Vaccination: No Hx Pneumococcal Vaccination: No Review Of Systems Constitutional: Negative for: Fever, Chills ENT: Positive for: Ear Pain, Nose Discharge Respiratory: Positive for: Cough Gastrointestinal: Negative for: Nausea, Vomiting Skin: Negative for: Rash Physical Exam - Physical Exam Appears: Non-toxic Skin: Normal Color, Warm, Dry Head: Atraumatic, Normacephalic Eye(s): bilateral: Normal Inspection Ear(s): Left: TM Erythema, Right: Normal Nose: Normal Oral Mucosa: Moist Throat: Normal, No Erythema, No Exudate Neck: Normal, Supple Chest: Symmetrical, No Tenderness Cardiovascular: Rhythm Regular Respiratory: Normal Breath Sounds, No Rales, No Rhonchi, No Wheezing Gastrointestinal/Abdominal: Soft, No Tenderness Back: No CVA Tenderness Neurological/Psych: Oriented x3, Normal Speech ED Course And Treatment O2 Sat by Pulse Oximetry: 100 (Room air) Pulse Ox Interpretation: Normal Progress Note: Motrin and prednisone administered. Patient is resting comfortably in the ER in no acute distress, vitals are stable, will start on amoxicillin and discharge with instructions to follow up with PMD. Disposition - Disposition Referrals: Ronald Meade MD [Staff Provider] - Disposition: HOME/ ROUTINE Disposition Time: 21:57 Condition: GOOD Additional Instructions: Follow up with the medical doctor within 1-2 days. Return if worsened. Prescriptions: Amoxicillin/Clavulanate [Augmentin 875 MG-125 MG] 1 tab PO BID #14 tab Ibuprofen [Motrin] 1 tab PO TID PRN #30 tab PRN Reason: Pain predniSONE [Prednisone] 20 mg PO BID #10 tab Instructions: Ear Infections (Otitis Media) (DC) Forms: [employer] (Tristanian) - Clinical Impression Clinical Impression: Otitis media, Upper respiratory infection - PA / PATTERN GRADER SUPERVISOR / Resident Statement MD/DO has reviewed & agrees with the documentation as recorded. - Scribe Statement The provider has reviewed the documentation as recorded by the Scribe Gustavo Howell All medical record entries made by the Scribe were at my direction and personally dictated by me. I have reviewed the chart and agree that the record accurately reflects my personal performance of the history, physical exam, medical decision making, and the department course for this patient. I have also personally directed, reviewed, and agree with the discharge instructions and disposition.
[2018-04-05 22:21] VITALS: RESP 20
== END 2018-04-05 22:20 | disposition home or self-care (01) ==
LOC: C.ER 21:02
DX: H66.92 Otitis media, unspecified, left ear (principal); J06.9 Acute upper respiratory infection, unspecified